=== PATIENT | female | born 1955 | race Caucasian/White ===

== ENCOUNTER 2016-11-24 13:46 | Emergency (ER) | payer SELFPAY ==
--- NOTE | 2016-12-03 19:43 | ER ---
ADMIT: 11/24/2016 RM/LOC: ER [facility] MR#: [id number] [address] [facility] [address] [place] [id number] SAI COMBS [id number] [place] [id number] Emergency Room Report SEX: F AGE: 61 : 1955 DATE: 11/24/2016 ADDENDUM: CHIEF COMPLAINT: Hypertension. HISTORY OF PRESENT ILLNESS: This 61-year-old female who does not have insurance at this time, really has no money. She has not seen a doctor in 6 months. She has noticed that her blood pressure was very elevated, it was 207/106 when she came in. She says she used to be on lisinopril 10 mg daily and this is all she really wanted. She does not have any numbness, tingling. No weakness, no chest pain. No shortness of breath. I am prescribing her lisinopril 10 mg 1 tab daily, dispensing 30. I did give her information about [facility] or [facility]. She will go to one of those clinics within the next week to establish care. CLINICAL IMPRESSION: Hypertension. HERMAN Ferrara / Jesus Alberto Lindsey MD / alvaro JOB #: [id number] CC: Jesus Alberto Lindsey MD, Attending Physician
== END 2016-11-24 15:10 | disposition home or self-care (01) ==
LOC: ER 13:46
DX: I10 Essential (primary) hypertension (principal); F17.210 Nicotine dependence, cigarettes, uncomplicated; Z86.73 Personal history of transient ischemic attack (TIA), and cerebral infarction without residual deficits; Z88.5 Allergy status to narcotic agent